=== PATIENT | female | born 1935 | race Caucasian/White ===

== ENCOUNTER 2016-08-11 15:28 | Outpatient (CLI) | payer MEDICARE, OTHER ==
--- NOTE | 2016-08-12 09:19 | XRAY Report ---
TWO-VIEW CHEST: 08/11/2016 CLINICAL INDICATION: Cough. COMPARISON: CT 02/16/2015. FINDINGS: Frontal and lateral views of the chest demonstrate a normal cardiac silhouette. Pleural c alcifications are stable. No new consolidation, effusion, or pneumothorax is present. IMPRESSION: NO EVIDENCE OF ACUTE CARDIOPULMONARY DISEASE. JOB #: [id number] EXT JOB #:[id number]
== END 2016-08-11 15:29 | disposition home or self-care (01) ==
LOC: DI.S 15:28
PROVIDERS: ATTEND Physician Assistant
DX: J20.9 Acute bronchitis, unspecified (principal)
CPT/HCPCS: 71020

== ENCOUNTER 2017-02-20 10:28 | Emergency (ER) | payer MEDICARE, OTHER ==
--- NOTE | 2017-02-20 11:25 | XRAY Preliminary Report ---
Exam: XR CHEST 2 VIEW PA/LAT IMPRESSION: Patchy mid lung opacities bilaterally, most likely atelectasis or pneumonia. Follow-up re commended in 2-3 weeks to confirm clearing. Otherwise, no acute abnormality. [facility] SITE ID: [id number]
--- NOTE | 2017-02-20 11:27 | XRAY Report ---
EXAM: CHEST RADIOGRAPHY 2 VIEWS EXAM DATE: 02/20/2017. CLINICAL HISTORY: Productive cough. COMPARISON: 02/16/2015. TECHNIQUE: PA and lateral views. FINDINGS: Lungs/Pleura: Normal vasculature. Small patchy opacities in the mid lung bilaterally. No pleural flui d or pneumothorax. Mediastinum: Normal cardiac and mediastinal contours. Bones: Degenerative changes of the spine. Left shoulder prosthesis. IMPRESSION: Patchy mid lung opacities bilaterally, most likely atelectasis or pneumonia. Follow-up re commended in 2-3 weeks to confirm clearing. Otherwise, no acute abnormality. [facility] Referring Provider Line: [phone] SITE ID: [id number]
--- NOTE | 2017-02-20 12:36 | ED Physician Documentation ---
PD HPI URI - Stated complaint Stated Complaint: COUGH - Chief complaint Chief Complaint: Resp - History obtained from History obtained from: Patient - History of Present Illness Timing - onset: How many weeks ago (1) Timing duration: Weeks (1) Timing details: Gradual onset, Still present (worse cough the past day) Associated symptoms: Nasal congestion, Sinus pain, Sore throat, Productive cough. No: Fever Contributing factors: No: Sick contact, Travel Similar symptoms before: Diagnosis (pneumonia) Recently seen: Not recently seen Review of Systems Constitutional: denies: Fever, Chills Nose: reports: Rhinorrhea / runny nose, Congestion Respiratory: reports: Cough Skin: denies: Rash, Lesions PD PAST MEDICAL HISTORY - Past Medical History Past Medical History: Yes Cardiovascular: None Respiratory: None Neuro: Headache/migraine Endocrine/Autoimmune: None GI: None : None HEENT: None Psych: None Musculoskeletal: Osteoarthritis Derm: None - Past Surgical History Past Surgical History: Yes /[employer]: Hysterectomy, Oophrectomy - Present Medications Home Medications: Ambulatory Orders Medication Instructions Recorded Confirmed Aspirin Chewable [St Reza 81 mg PO DAILY 11/12/14 02/20/17 Aspirin] Levothyroxine [Synthroid] 75 mcg PO QDAC 11/12/14 02/20/17 Triamterene/Hydrochlorothiazid 1 each PO DAILY 11/12/14 02/20/17 [Triamterene-Hctz 37.5-25 mg Cp] FLUoxetine [PROzac] 30 mg PO DAILY 02/16/15 02/20/17 Omeprazole 20 mg PO QDAC 02/17/15 02/20/17 Pravastatin Sodium 40 mg PO QPM 02/17/15 02/20/17 Albuterol Sulf [Ventolin Hfa 1 - 2 puffs INH Q4HR PRN #1 inhaler 02/20/17 Inhaler] Benzonatate [Tessalon] 100 mg PO TID PRN #25 capsule 02/20/17 Dexamethasone [Decadron] 4 mg PO DAILY #5 tablet 02/20/17 Doxycycline Monohydrate 100 mg PO BID #14 tablet 02/20/17 - Allergies Allergies/Adverse Reactions: Allergies Allergy/AdvReac Type Severity Reaction Status Date / Time No Known Drug Allergies Allergy Verified 11/12/14 14:52 - Social History Does the pt smoke?: No Smoking Status: Never smoker Does the pt drink ETOH?: Yes Does the pt have substance abuse?: No - Immunizations Immunizations are current?: No Immunizations: TDAP >10years/unknown - POLST Patient has POLST: No PD ED PE NORMAL - Vitals Vital signs reviewed: Yes - General General: Alert and oriented X 3, No acute distress, Well developed/nourished - HEENT HEENT: Ears normal, Moist mucous membranes, Pharynx benign - Neck Neck: Supple, no meningeal sign, No adenopathy - Cardiac Cardiac: RRR, No murmur - Respiratory Respiratory: Clear bilaterally - Abdomen Abdomen: Soft, Non tender - Back Back: No CVA TTP - Derm Derm: Normal color, Warm and dry - Extremities Extremities: No tenderness to palpate, Normal ROM s pain Results - Vitals Vitals: Oxygen O2 Source Room air - Rads (name of study) chest Radiology: Prelim report reviewed (right middle field with mild infiltrate. ) PD MEDICAL DECISION MAKING - ED course Complexity details: considered differential (she looks good, with minimal infiltrates on xray. Sats and vitals are good. ), d/w patient Departure - Departure Disposition: 01 Home, Self Care Clinical Impression: Upper respiratory infection Qualifiers: URI type: unspecified URI Qualified Code(s): J06.9 - Acute upper respiratory infection, unspecified Pneumonia Qualifiers: Pneumonia type: due to unspecified organism Laterality: right Lung location: middle lobe of lung Qualified Code(s): J18.1 - Lobar pneumonia, unspecified organism Condition: Stable Record reviewed to determine appropriate education?: Yes Instructions: ED Pneumonia Adult Prescriptions: Albuterol Sulf [Ventolin Hfa Inhaler] 1 - 2 puffs INH Q4HR PRN #1 inhaler PRN Reason: Shortness Of Air/Wheezing Benzonatate [Tessalon] 100 mg PO TID PRN #25 capsule PRN Reason: Cough Dexamethasone [Decadron] 4 mg PO DAILY #5 tablet Doxycycline Monohydrate 100 mg PO BID #14 tablet Comments: There is a very small patch of haziness on your x-ray that could suggest early pneumonia. Otherwise it sounds like a general respiratory infection. This commonly can be viral but sometimes bacterial. We will treated with antibiotics but also a combination of inhaler, cough medicine, steroid to help decrease symptoms generally. Drink lots of fluids. Tylenol if needed for fevers. Recheck if not improving over the next few days. Discharge Date/Time: 02/20/17 12:40
[2017-02-20 12:46] VITALS: BP 126/68
== END 2017-02-20 12:40 | disposition home or self-care (01) ==
LOC: ED 10:28
DX: J06.9 Acute upper respiratory infection, unspecified (principal); Z79.82 Long term (current) use of aspirin
CPT/HCPCS: 71020; 99283

== ENCOUNTER 2017-09-12 15:36 | Outpatient (CLI) | payer MEDICARE, OTHER ==
--- NOTE | 2017-09-13 08:14 | XRAY Report ---
Procedure Date: 09/12/2017 Accession Number: [id number] / [id number] Procedure: XRS - Foot 3 View BILAT CPT Code: FULL RESULT: EXAM: Foot 3 View BILAT DATE: 09/12/2017 4:11 PM CLINICAL HISTORY: FOOT,LEG,HIP PAIN COMPARISON: None. TECHNIQUE: 3 views each foot. FINDINGS: RIGHT: Bones: Evidence of old trauma, fourth ray proximal phalanges. No acute fracture, dislocation or aggressive osseous lesion. Joints: Normal. No subluxations. Soft Tissues: Normal. No soft tissue swelling. LEFT: Bones: Normal. No fractures or bone lesions. Joints: Normal. No subluxations. Soft Tissues: Normal. No soft tissue swelling. IMPRESSION: No acute fracture, dislocation or aggressive bone lesion. [facility]
--- NOTE | 2017-09-13 08:15 | XRAY Report ---
Procedure Date: 09/12/2017 Accession Number: [id number] / [id number] Procedure: XRS - Hip w/Pelvis 2-3V RT CPT Code: FULL RESULT: EXAM: Hip w/Pelvis 2-3V RT DATE: 09/12/2017 4:11 PM CLINICAL HISTORY: FOOT,LEG,HIP PAIN COMPARISON: None. TECHNIQUE: 1 view of the pelvis and 1 view of the hip. FINDINGS: Bones: Normal. No fracture or bone lesion. Joints: Femoroacetabular joint space narrowing right greater than left in keeping with osteoarthrosis. The pubis symphysis, and sacroiliac joints are preserved. Soft Tissues: Normal. No soft tissue swelling. IMPRESSION: Hip joint osteoarthrosis right greater than left, otherwise unremarkable pelvis and hip radiography. [facility]
--- NOTE | 2017-09-13 08:18 | XRAY Report ---
Procedure Date: 09/12/2017 Accession Number: [id number] / [id number] Procedure: XRS - Knee 3 View BILAT CPT Code: FULL RESULT: EXAM: Knee 3 View BILAT DATE: 09/12/2017 4:11 PM CLINICAL HISTORY: FOOT,LEG,HIP PAIN COMPARISON: None. TECHNIQUE: 3 views each. FINDINGS: RIGHT KNEE: Bones: Normal. No fractures or bone lesions. Joints: Chondrocalcinosis. No effusion. No subluxations. Soft Tissues: Normal. No soft tissue swelling. LEFT KNEE: Bones: Normal. No fractures or bone lesions. Joints: Chondrocalcinosis. No effusion. No subluxations. Soft Tissues: Normal. No soft tissue swelling. IMPRESSION: Unremarkable bilateral knee radiographs. [facility]
== END 2017-09-12 15:37 | disposition home or self-care (01) ==
LOC: DI.S 15:36
PROVIDERS: ATTEND Registered Nurse
DX: M16.0 Bilateral primary osteoarthritis of hip (principal); M79.606 Pain in leg, unspecified; M79.671 Pain in right foot

== ENCOUNTER 2019-01-31 14:47 | Outpatient (CLI) | payer MEDICARE, OTHER ==
--- NOTE | 2019-02-01 15:43 | XRAY Report ---
Reason: COUGH Procedure Date: 01/31/2019 Accession Number: [id number] / [id number] Procedure: XRS - Chest 2 View X-Ray CPT Code: 86855 Final Report FULL RESULT: EXAM: CHEST RADIOGRAPHY EXAM DATE: 01/31/2019 03:00 PM. CLINICAL HISTORY: COUGH. COMPARISON: CHEST 2 VIEW PA/LAT 02/20/2017 10:50 AM. TECHNIQUE: 2 views. FINDINGS: Lungs/Pleura: No focal opacities evident. No pleural effusion. No pneumothorax. Normal volumes. Pleural calcifications on the right redemonstrated. Mediastinum: Heart and mediastinal contours are unremarkable. Other: None. IMPRESSION: No focal consolidation. [facility]
== END 2019-01-31 14:48 | disposition home or self-care (01) ==
LOC: DI.S 14:47
PROVIDERS: ATTEND Nurse Practitioner Family
DX: R05 Cough (principal)
CPT/HCPCS: 71046

== ENCOUNTER 2019-03-20 14:41 | Outpatient (CLI) | payer MEDICARE, OTHER ==
--- NOTE | 2019-03-21 14:53 | DEXA Report ---
Reason: POSTMENOPAUSAL Procedure Date: 03/20/2019 Accession Number: [id number] / [id number] Procedure: DEX - Dexa Spine and/or Hip CPT Code: Final Report FULL RESULT: EXAM: Dexa Spine and/or Hip DATE: 03/20/2019 3:08 PM CLINICAL HISTORY: POSTMENOPAUSAL. TECHNIQUE: Dual energy x-ray absorptiometry (DXA) was performed on a [employer]reme[employer] System. Regions measured are the AP Spine, femoral neck, and if needed forearm. COMPARISON: None. In accordance with the International Society for Clinical Densitometry (ISCD) guidelines, data from previous exams may be reanalyzed using current recommendations and techniques. This is done to allow a more accurate basis for comparison with the current study. FINDINGS: The data for the lumbar spine is as follows: BMD (g/cm/cm) T-SCORE Z-SCORE REGION L1 1.081 -0.4 1.2 L2 1.166 -0.3 1.3 L3 1.374 1.4 3.0 L4 1.376 1.5 3.0 TOTAL 1.262 0.7 2.2 NOTE: All evaluable vertebrae are used for classification The data for the hip is as follows: BMD (g/cm/cm) T-SCORE Z-SCORE REGION Neck 0.805 -1.7 0.4 TOTAL 0.918 -0.7 1.2 NOTE: The femoral neck or total proximal femur, whichever is lowest, is used for classification. IMPRESSION: THE WHO CLASSIFICATION BASED ON THE INTERNATIONAL REFERENCE STANDARD IS OSTEOPENIA.THE FRACTURE RISK IS INCREASED. RECOMMENDATION: Patients with diagnosis of osteoporosis or osteopenia should have regular bone mineral density assessment. For those eligible for Medicare, routine testing is allowed once every 2 years. Testing frequency can be increased for patients who have rapidly progressing disease or for those who are receiving medical therapy to restore bone mass. COMMENT: World Health Organization (WHO) definitions for osteoporosis and osteopenia: NORMAL BMD: T-score at -1.0 or higher, fracture risk is low OSTEOPENIA BMD: T-score between -1.0 and -2.5, fracture risk is increased. OSTEOPOROSIS BMD: T-score at -2.5 or lower, fracture risk is high. National Osteoporosis Foundation recommends: 1. Obtain adequate dietary calcium (at least 1200 mg per day) and vitamin D (400-800 international units per day). 2. Participate, as appropriate, in regular weightbearing and muscle-strengthening exercise. 3. Avoid tobacco use and reduce alcohol and caffeine intake. 4. For more detailed information see the website at www.NOF.org.
== END 2019-03-20 14:42 | disposition home or self-care (01) ==
LOC: DI 14:41
PROVIDERS: ATTEND Registered Nurse
DX: M85.88 Other specified disorders of bone density and structure, other site (principal)
CPT/HCPCS: 77080

== ENCOUNTER 2019-08-06 11:31 | Outpatient (CLI) | payer MEDICARE, OTHER ==
--- NOTE | 2019-08-06 12:12 | XRAY Report ---
Reason: PAIN IN RIGHT HIP, RT KNEE Procedure Date: 08/06/2019 Accession Number: [id number] / [id number] Procedure: XR - Knee 3 View RT CPT Code: Final Report FULL RESULT: PROCEDURE: Knee 3 View RT INDICATIONS: PAIN IN RIGHT HIP, RT KNEE TECHNIQUE: 3 views of the right knee(s) were acquired. COMPARISON: None. FINDINGS: Bones: Mild tricompartmental osteoarthritis is seen. No fractures or dislocations. No suspicious bony lesions. Soft tissues: No joint effusion. Mild chondrocalcinosis in medial and lateral femoral tibial compartments are also seen. IMPRESSION: Mild tricompartmental osteoarthritis and chondrocalcinosis. No fracture or dislocation. No significant joint effusion. Reviewed by: Mike Moeller MD on 08/06/2019 12:11 PM PDT Approved by: Mike Moeller MD on 08/06/2019 12:11 PM PDT Station ID: [id number]
--- NOTE | 2019-08-06 12:13 | XRAY Report ---
Reason: PAIN IN RIGHT HIP, RT KNEE Procedure Date: 08/06/2019 Accession Number: [id number] / [id number] Procedure: XR - Hip w/Pelvis 2-3V RT CPT Code: Final Report FULL RESULT: PROCEDURE: Hip w/Pelvis 2-3V RT INDICATIONS: PAIN IN RIGHT HIP, RT KNEE TECHNIQUE: AP pelvis with lateral view(s) of the right hip(s). COMPARISON: None. FINDINGS: Bones: No fractures or dislocations. Moderate right hip joint osteoarthritic changes are seen with joint space narrowing, subchondral sclerosis and small marginal osteophyte formation. Mild left hip joint osteoarthritic changes also noted. No evidence of avascular necrosis. Pelvic ring appears intact. No suspicious bony lesions. Soft tissues: The visualized bowel gas pattern is normal. No suspicious soft tissue calcifications. IMPRESSION: Asymmetric moderate right hip joint osteoarthritis. Mild left hip joint osteoarthritis. No evidence of avascular necrosis. Reviewed by: Mike Moeller MD on 08/06/2019 12:12 PM PDT Approved by: Mike Moeller MD on 08/06/2019 12:12 PM PDT Station ID: [id number]
== END 2019-08-06 11:32 | disposition home or self-care (01) ==
LOC: DI 11:31
PROVIDERS: ATTEND Registered Nurse
DX: M17.5 Other unilateral secondary osteoarthritis of knee (principal); M11.261 Other chondrocalcinosis, right knee; M16.6 Other bilateral secondary osteoarthritis of hip

== ENCOUNTER 2020-01-14 13:37 | Outpatient (CLI) | payer MEDICARE, OTHER ==
--- NOTE | 2020-01-23 14:10 | Mammography Report ---
BILATERAL DIGITAL SCREENING MAMMOGRAM 3D/2D: 01/14/2020 CLINICAL: Routine screening. Routine screening. Comparison is made to exams dated: 05/17/2018 mammogram, 04/20/2017 mammogram, and 05/05/2015 mammogram - [facility]. The tissue of both breasts is predominantly fatty. No significant masses, calcifications, or other findings are seen in either breast. There has been no significant interval change. IMPRESSION: NEGATIVE There is no mammographic evidence of malignancy. A 1 year screening mammogram is recommended. This exam was interpreted at Station ID: [id number]. NOTE: For mammograms, a report in lay terms will be sent to the patient. Approximately 15% of breast malignancies will not be visualized mammographically. In the management of a palpable breast mass, a negative mammogram must not discourage biopsy of a clinically suspicious lesion. Electronically Signed By: Carlos Quintana M.D., jr/giuliana:01/23/2020 10:56:09 ACR BI-RADS Category 1: Negative 3341F PARENCHYMAL PATTERN: (F) - The breast(s) demonstrate(s) diffuse fatty replacement. BI-RADS CATEGORY: (1) - 1 RECOMMENDATION: (ANNUAL) - Recommend routine annual screening mammography. [id number] 1 year screening LATERALITY: (B)
== END 2020-01-14 13:38 | disposition home or self-care (01) ==
LOC: DI 13:37
PROVIDERS: ATTEND Registered Nurse
DX: Z12.31 Encounter for screening mammogram for malignant neoplasm of breast (principal)
CPT/HCPCS: 77063; 77067

== ENCOUNTER 2020-03-17 13:30 | Outpatient (CLI) | payer MEDICARE, OTHER ==
--- NOTE | 2020-03-17 14:30 | CT Report ---
PROCEDURE: HEAD WO INDICATIONS: HEADACHE, FALL TECHNIQUE: Noncontrast 4.5 mm thick angled axial sections acquired from the foramen magnum to the vertex. For r adiation dose reduction, the following was used: automated exposure control, adjustment of mA and/or kV according to patient size. COMPARISON: 07/14/2012 FINDINGS: Image quality: Excellent. CSF spaces: Basal cisterns are patent. No extra-axial fluid collections. The ventricles are symmet gisele in size and shape. Brain: No intracranial bleeds or masses. There is cerebral volume loss for age, with resultant vent ricular and sulcal prominence. There are periventricular and deep white matter chronic small vessel ischemic changes. There is intracranial internal carotid artery atherosclerosis. Skull and face: Calvarium and visualized facial bones appear intact, without suspicious lesions. Sinuses: Visualized sinuses and mastoids are clear. IMPRESSION: No acute intracranial disease process. Reviewed by: Bettina Law MD, PhD on 03/17/2020 1:28 PM [facility] Approved by: Bettina Law MD, PhD on 03/17/2020 1:28 PM [facility] Station ID: [id number]
== END 2020-03-17 13:31 | disposition home or self-care (01) ==
LOC: DI 13:30
PROVIDERS: ATTEND Registered Nurse
DX: R51.9 Headache, unspecified (principal)
CPT/HCPCS: 70450

== ENCOUNTER 2020-03-21 13:07 | Outpatient (CLI) | payer MEDICARE, OTHER ==
[~2020-03-21 13:07] MED LIST: BUFFERED LIDOCAINE 10 ML SYRINGE ONE; ROPIVACAINE 0.5% PF 20 ML AMPULE ONE; TRIAMCINOLONE 40 MG/ML VIAL ONE
[2020-03-21] MEDS ORDERED: ROPIVACAINE 0.5% PF 20 ML AMPULE EP ONE (14:50)
[2020-03-21] MEDS ORDERED: iohexoL-240 10 ML VIAL IVP ONE (14:52)
[2020-03-21] MEDS ORDERED: TRIAMCINOLONE 40 MG/ML VIAL IM ONE (14:56)
[2020-03-21] MEDS ORDERED: BUFFERED LIDOCAINE 10 ML SYRINGE IU ONE (14:56)
--- NOTE | 2020-03-21 15:05 | XRAY Report ---
PROCEDURE: Inj/Aspiration Major Joint INDICATIONS: OSTEOARTHRITIS OF RT HIP JOINT CONTRAST: CONTRAST: Omipaque FLUORO TIME: FLUORO TIME: 0.13 and NUMBER IMAGES: 2 TECHNIQUE: The indications, alternatives, benefits, risks, and complications of the procedure were explained to the patient. Written informed consent was obtained and placed in the chart. The patient was placed in an appropriate position on the fluoroscopy table, and a site was chosen for percutaneous access un maricel fluoroscopic guidance. Local anesthetic was administered using a 1% lidocaine solution. A hypod ermic or spinal needle was then used to access the symptomatic joint. Intra-articular location of th e needle tip was confirmed by injecting a small amount of contrast, followed by steroid administratio n. The needle was then withdrawn, and a bandage applied to the puncture site. FINDINGS: Joint injected: Right hip Medications injected: 4 mL of 40 mg/mL Kenalog and 0.5% Ropivacaine mixture. Complications: None. Preinjection pain level: 5 out of 10 Postinjection pain level 2 out of 10 IMPRESSION: Successful fluoroscopically guided administration of steroid and anaesthetic solution into the right hip joint. Reviewed by: Thais Cannon MD on 03/21/2020 3:04 PM PST Approved by: Thais Cannon MD on 03/21/2020 3:04 PM PST Station ID: [id number]
== END 2020-03-21 13:08 | disposition home or self-care (01) ==
LOC: DI 13:07
PROVIDERS: ATTEND Registered Nurse
DX: M16.11 Unilateral primary osteoarthritis, right hip (principal)
CPT/HCPCS: 20610; Q9966

== ENCOUNTER 2020-08-19 11:05 | Outpatient (CLI) | payer MEDICARE, OTHER | END 2020-08-19 11:06 | disposition home or self-care (01) | LOC: LAB 11:05 | PROVIDERS: ATTEND Internal Medicine Gastroenterology | DX: R12 Heartburn (principal); K21.9 Gastro-esophageal reflux disease without esophagitis; Z20.822 Contact with and (suspected) exposure to COVID-19 ==

== ENCOUNTER 2020-11-06 07:20 | Day surgery (SDC) | payer MEDICARE, OTHER ==
[~2020-11-06 07:20] MED LIST changes: -BUFFERED LIDOCAINE 10 ML SYRINGE ONE; +CYCLOPENTOLATE 1% OPHTH DROPS 2 ML ONE; +KETOROLAC 0.45% OPHTH DROPS ONE; +PHENYLEPHRINE 2.5% OPHTH 2 ML DROPS ONE; +PROPARACAINE 0.5% OPHTH DROPS 15 ML ONE; -ROPIVACAINE 0.5% PF 20 ML AMPULE ONE; -TRIAMCINOLONE 40 MG/ML VIAL ONE
[2020-11-06] MEDS ORDERED: LACTATED RINGERS 1,000 ML IV ONE ×2 (07:38→09:16)
--- NOTE | 2020-11-06 07:55 | ANESTHESIA ---
Pre-Anesthesia VS, & Labs - Diagnosis L senile combined cataract - Procedure L extraction cataract w/IOL Vital Signs: Temp Pulse Resp BP Pulse Ox 36.1 C L 75 16 138/71 H 98 11/06/20 07:48 11/06/20 07:48 11/06/20 07:48 11/06/20 07:48 11/06/20 07:48 Height: 5 ft 2 in Weight (kg): 75 kg Body Mass Index: 30.2 BMI Classification: Obese - NPO >8 hours - Is Patient ?: No - Lab Results Lab results reviewed: Yes Home Medications and Allergies Aspirin Chewable [St Reaz Aspirin] 81 mg PO DAILY 11/12/14 Levothyroxine [Synthroid] 75 mcg PO QDAC 11/12/14 Triamterene/Hydrochlorothiazid [Triamterene-Hctz 37.5-25 mg Cp] 1 each PO DAILY 11/12/14 FLUoxetine [PROzac] 30 mg PO DAILY 02/16/15 Omeprazole 20 mg PO QDAC 02/17/15 Pravastatin Sodium 40 mg PO QPM 02/17/15 Allergies/Adverse Reactions: Allergies Allergy/AdvReac Type Severity Reaction Status Date / Time No Known Drug Allergies Allergy Verified 11/12/14 14:52 Anes History & Medical History - Anesthetic History Anesthesia Complications: reports: No previous complications Family history of Anesthesia Complications: Denies Family history of Malignant Hyperthermia: Denies - Medical History Cardiovascular: reports: None Pulmonary: reports: None Gastrointestinal: reports: None Urinary: reports: None Musculoskeletal: reports: Osteoarthritis Endocrine/Autoimmune: reports: None Blood Disorders: reports: None Skin: reports: None Smoking Status: Never smoker - Surgical History Gynecologic: reports: Hysterectomy, Oophrectomy Exam General: Alert, Oriented x3, Cooperative Mouth Openin Fingerbreadth Neck Mobility: Normal Mallampati classification: II Thyromental Distance: 4-6 cm Respiratory: Lungs clear, Normal breath sounds, No respiratory distress Cardiovascular: Regular rate Neurological: Normal speech Mental/Cognitive Status: Alert/Oriented X3, Normal for patient Cognitive Status: Within normal limits Plan Anesthesia Type: MAC Consent for Procedure(s) Verified and Reviewed: Yes Code Status: Attempt Resuscitation ASA classification: 2-Mild systemic disease Is this case an emergency?: No
[2020-11-06] MEDS ORDERED: MIDAZOLAM 2 MG/2 ML VIAL ONE (08:33)
[2020-11-06] MEDS ORDERED: TIMOLOL 0.5% OPHTH DROPS OPTH ONE (08:47)
[2020-11-06] MEDS ORDERED: EPINEPHrine 1 MG/ML AMP IR ONE (08:47)
[2020-11-06] MEDS ORDERED: CHONDR SULF/HYALURONATE SYRINGE IO ONE (08:47)
[2020-11-06] MEDS ORDERED: BRIMONIDINE 0.2% OPHTH DROPS 5 ML OPTH ONE (08:47)
[2020-11-06] MEDS ORDERED: BSS/LIDOCAINE/EPINEPHRINE 1 ML SYRINGE IO ONE (08:48)
[2020-11-06] MEDS ORDERED: TRIAMCIN/MOXIFLOX OPHTHALMIC 0.6 ML VIAL IO ONE ×2 (08:48→09:22)
[2020-11-06] MEDS ORDERED: PROPARACAINE 0.5% OPHTH DROPS 15 ML EACHEYE ONE (08:49)
[2020-11-06] MEDS ORDERED: VANCOMYCIN OPHTHALMI 8MG/0.8ML 8 MG/0.8 ML SYRINGE IO ONE ×2 (08:49→09:23)
--- NOTE | 2020-11-06 09:11 | ANESTHESIA POST OP EVALUATION ---
Anesthesia Post Eval - Post Anesthesia Eval Vitals: Last Vital Signs Temp 36.1 C L 11/06/20 07:48 Pulse 75 11/06/20 07:48 Resp 16 11/06/20 07:48 BP 138/71 H 11/06/20 07:48 Pulse Ox 98 11/06/20 07:48 CV Function Including HR & BP: Stable Pain Control: Satisfactory Nausea & Vomiting: Negative Mental Status: Baseline Respiratory Status: Airway Patent Hydration Status: Satisfactory Anesthesia Complications: None
--- NOTE | 2020-11-06 09:23 | OPERATIVE REPORT ---
Operative Report - Other Other Information/Narrative: Date of Surgery: Preop Dx: Complex, visually significant cataract left eye. Complex due to small pupil requiring mechanical dilation using a Malyugin ring. This was the first cataract surgery. Postop Dx: Same Procedure: Phacoemulsification with posterior chamber intraocular lens implant left eye Surgeon: Dr. 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 Best corrected visual acuity was 20/50 with glare to 20/200 vision in the left eye. Indications for surgery were: - Difficulty seeing words, closed captions, or game scores on TV - Difficulty driving in low light or at night - Difficulty driving at night because of headlights from other vehicles - Difficulty with glare or bright lights in any situation The patient was consented at length concerning the risks and benefits of catarac t surgery after which the patient expressed a desire to proceed with surgery. Operative Procedure: The patient was taken into OR#3 and placed under monitored anesthesia care. A surgical time-out was conducted confirming correct patient, correct procedure, and correct surgical site. The patient was given topical anesthesia and then prepped and draped in the usual sterile fashion. The eye was entered at the 6 and 3 oclock positions. Intracameral Shugarcaine was injected into the anterior chamber followed by a dispersive viscoelastic. A Malyugin ring was injected into the anterior chamber and engaged with the pupillary margin at four points to expand the pupil. A continuous-tear curvilinear capsulorhexis was performed. The nucleus was hydrodissected and pha coemulsified. The cortex was evacuated using automated infusion and aspiration. A cohesive viscoelastic was injected into the capsular bag and a 20.5 diopter intraocular lens was inserted into the bag. The Malyugin ring was disengaged from the pupillary margin and removed from the anterior chamber. Infusion and aspiration were used to evacuate the viscoelastic materials from the eye. The wounds were hydrated and the eye inflated to physiologic pressure using balanced salt solution. Approximately 0.25ml of a mixture of triamcinolone and moxifloxacin was injected trans-sclerally into the vitreous in the inferotemporal quadrant using a 30 gauge cannula. An additional 0.55ml of a mixture of triamcinolone, moxifloxacin, and vancomycin was injected subconjunctivally in the superior quadrant for infection and inflammation prophylaxis. Wound integrity was checked with Weck-Argelia sponges. The patient was taken from the operating room in good condition and given post-op instructions.
[2020-11-06 09:37] VITALS: BP 130/60
== END 2020-11-06 07:21 | disposition home or self-care (01) ==
LOC: SDS 07:20
PROVIDERS: ATTEND Ophthalmology
DX: H25.812 Combined forms of age-related cataract, left eye (principal); Z87.891 Personal history of nicotine dependence; E66.9 Obesity, unspecified; Z68.30 Body mass index [BMI] 30.0-30.9, adult
CPT/HCPCS: 66984; A9270; J3490; J7120

== ENCOUNTER 2021-10-28 17:55 | Outpatient (CLI) | payer MEDICARE, OTHER | END 2021-10-28 17:56 | disposition critical access hospital (66) | LOC: EMS 17:55 | DX: T63.441A Toxic effect of venom of bees, accidental (unintentional), initial encounter (principal); L50.9 Urticaria, unspecified; R09.89 Other specified symptoms and signs involving the circulatory and respiratory systems | CPT/HCPCS: A0425; A0427 ==

== ENCOUNTER 2021-10-28 18:23 | Emergency (ER) | payer MEDICARE, OTHER ==
[2021-10-28] MEDS ORDERED: predniSONE 20 MG TABLET PO STA (18:28)
[2021-10-28] MEDS ORDERED: FAMOTIDINE 20 MG TABLET PO STA (18:30)
--- NOTE | 2021-10-28 18:31 | ED Physician Documentation ---
History of Present Illness - Stated complaint Stated Complaint: ALLERGIC REACTION - Additonal information Additional information: 86-year-old female presents the emergency department for evaluation of anaphylaxis to a bee sting. At just after 5 PM she was stung on the right hand by a bee. She began to develop generalized urticaria had some difficulty breathing and shortness of air and summoned 911. On presentation for EMS they noted a soft systolic blood pressure of 100. She was Arousable though lethargic. They administered 0.3 mg of epinephrine at 1755 as well as 50 mg of Benadryl IM. This improved much of the urticaria. She began to report some tongue difficulty at about 9:54 PM and was then again administered 0.3 mg of epinephrine. Since then the hives have started to resolve though she still have them on her abdomen. She is lethargic but arousable. She knows where she is at and why she is here. She is denying chest pain or shortness of air. No focal deficits Review of Systems Constitutional: reports: Reviewed and negative Throat: reports: Other Respiratory: reports: Dyspnea GI: reports: Reviewed and negative : reports: Reviewed and negative Skin: reports: Bite / sting, Other (Generalized urticaria) Musculoskeletal: reports: Reviewed and negative Neurologic: reports: Reviewed and negative PD PAST MEDICAL HISTORY - Past Medical History Cardiovascular: None Respiratory: None Endocrine/Autoimmune: None GI: None : None HEENT: None Psych: None Musculoskeletal: Osteoarthritis Derm: None - Past Surgical History Past Surgical History: Yes Ortho: Shoulder arthroplasty /BE[employer]ER: Hysterectomy, Oophrectomy HEENT: Other - Present Medications Home Medications: Ambulatory Orders Medication Instructions Recorded Confirmed Levothyroxine [Synthroid] 75 mcg PO QDAC 11/12/14 11/06/20 Triamterene/Hydrochlorothiazid 1 each PO DAILY 11/12/14 11/06/20 [Triamterene-Hctz 37.5-25 mg Cp] FLUoxetine [PROzac] 30 mg PO DAILY 02/16/15 11/06/20 Omeprazole 20 mg PO QDAC 02/17/15 02/20/17 Pravastatin Sodium 40 mg PO QPM 02/17/15 11/06/20 Albuterol Sulf [Ventolin Hfa 1 - 2 puffs INH Q4HR PRN #1 inhaler 02/20/17 Inhaler] EPINEPHrine [Epinephrine] 0.3 mg IJ ONCE PRN #1 10/28/21 predniSONE [Deltasone] 40 mg PO DAILY 4 Days #8 tablet 10/28/21 - Allergies Allergies/Adverse Reactions: Allergies Allergy/AdvReac Type Severity Reaction Status Date / Time No Known Drug Allergies Allergy Verified 11/12/14 14:52 - Social History Does the pt smoke?: No Smoking Status: Never smoker Does the pt drink ETOH?: Yes Does the pt have substance abuse?: No - Immunizations Immunizations are current?: No Immunizations: TDAP >10years/unknown - POLST Patient has POLST: No PD ED PE NORMAL - General General: Alert and oriented X 3, No acute distress, Well developed/nourished - HEENT HEENT: Atraumatic, Ears normal, Pharynx benign, Other (No tongue or lip swelling. No swelling of the neck. Normal phonation. Mallampati of 2). No: Moist mucous membranes (Dry mouth mucous membranes) - Neck Neck: Supple, no meningeal sign, No adenopathy - Cardiac Cardiac: RRR, No murmur - Respiratory Respiratory: No respiratory distress, Clear bilaterally - Abdomen Abdomen: Normal bowel sounds - Derm Derm: Normal color, Warm and dry, Other (Generalized urticaria on the abdomen and legs. sting noted to the right forearm with generalized swelling and erythema surrounding it) - Extremities Extremities: No deformity - Neuro Neuro: Alert and oriented X 3, director of culture 2-12 intact Eye Opening: Spontaneous Motor: Obeys Commands Verbal: Oriented GCS Score: 15 Results - Vitals Vitals: Vital Signs - 24 hr 10/28/21 10/28/21 10/28/21 18:33 18:41 19:11 Temperature 36.4 C L Heart Rate 90 90 94 Respiratory 18 18 18 Rate Blood Pressure 138/58 H 142/64 H 134/62 H O2 Saturation 96 94 96 10/28/21 10/28/21 10/28/21 20:00 20:16 21:00 Temperature Heart Rate 58 L 81 78 Respiratory 15 15 10 L Rate Blood Pressure 128/58 L 127/58 L 120/60 O2 Saturation 94 96 92 10/28/21 10/28/21 21:27 21:31 Temperature Heart Rate 80 Respiratory 12 Rate Blood Pressure 93/61 118/59 L O2 Saturation 99 Oxygen O2 Source Room air - Labs Labs: Laboratory Tests 10/28/21 18:44 Sodium 136 Potassium 2.8 L Chloride 100 L Carbon Dioxide 23 Anion Gap 13.0 BUN 20 Creatinine 0.8 Estimated GFR (MDRD) 68 L Glucose 130 H Calcium 8.9 PD MEDICAL DECISION MAKING - ED course Complexity details: reviewed results, re-evaluated patient, d/w patient ED course: 86-year-old female presents emergency department for evaluation of a mild anaphylactic reaction to a bee sting. She was stung about 1 month ago and then stung again today. Shortly after being stung she had developed generalized urticaria and had some shortness of air. For EMS she was noted to have some mildly low blood pressure with a systolic of 100 as well as early facial swelling. She was administered epinephrine twice. On presentation to the emergency department she had some generalized urticaria that has resolved over that her observation period here. She was administered some prednisone and will be discharged with 4 days of prednisone. She did receive Benadryl via EMS. I did spend some time with the patient discussing the severity of hymenoptera envenomation and anaphylaxis. A prescription for an EpiPen was sent home with the patient. Emergent return precautions were otherwise discussed. Patient is signed out to my nighttime colleague Dr. Patten. If she remains symptom-free at about 11 PM she is stable for discharge home Departure - Departure Clinical Impression: Bee sting-induced anaphylaxis Qualifiers: Encounter type: initial encounter Injury intent: accidental or unintentional Qualified Code(s): T63.441A - Toxic effect of venom of bees, accidental (unintentional), initial encounter Condition: Stable Record reviewed to determine appropriate education?: Yes Instructions: EpiPen Auto Injector Dc, Anaphylaxis Prescriptions: predniSONE [Deltasone] 40 mg PO DAILY 4 Days #8 tablet EPINEPHrine [Epinephrine] 0.3 mg IJ ONCE PRN #1 PRN Reason: Anaphylaxis Comments: Radha you are seen today in the emergency department after you sustained a bee sting injury to your right hand. You had a reaction to the bee sting called anaphylaxis. This is always life-threatening and you should take any future bee sting injuries seriously. You were administered 2 doses of epinephrine in order to help minimize the swelling and keep your airway open. Should you receive another bee sting in the future you should self administer the epinephrine. You should also always carry this injector with you whenever you travel and keep it on your body at all times. For at least a few days I expect that this right hand will be sore and uncomfortable. You can continue to ice the hand. Applying hydrocortisone ointment can help reduce pain and swelling. I am sending a prescription for an additional 4 days of steroids to the [facility] in [place]. This will help reduce the hand swelling and help with the hives that you had developed Please discuss this ED visit with your primary care doctor. If at any point you develop a return of difficulty breathing, have tongue or lip swelling, have any fainting episodes or chest pain then you should return immediately to the ER for second evaluation.
[2021-10-28 18:59] LABS: CALCIUM 8.9 mg/dL (8.5-10.3); CREATININE 0.8 mg/dL (0.4-1.0); POTASSIUM 2.8 mmol/L (3.5-5.0)
[2021-10-28] MEDS ORDERED: HYDROmorphone 1 MG/ML CARPUJECT IVP STA (19:22)
[2021-10-28 21:31] VITALS: BP 118/59
--- NOTE | 2021-11-16 20:22 | ED Physician Documentation ---
ED Addendum - Addendum Addendum: 11/16/21 20:21 Received sign out from DELMA Cabezas, please see her note for details of H+P. I reevaluated patient at approximately 23:00. Patient is awake, alert, NAD, and eager to be discharged home. She has normal and stable vital signs, with pulse 90s bpm , pulse ox 95-97% on room air, and normal BP. She is asymptomatic.
== END 2021-10-28 23:15 | disposition home or self-care (01) ==
LOC: EDUNIT# → ED 18:23
DX: T63.441A Toxic effect of venom of bees, accidental (unintentional), initial encounter (principal)
CPT/HCPCS: 36415; 80048; 96374; 99283; 99284; A9270; J1170; J7512

== ENCOUNTER 2022-07-01 04:46 | Outpatient (CLI) | payer MEDICARE, OTHER | END 2022-07-01 04:47 | disposition EMS.NT | LOC: EMS 04:46 | DX: F41.9 Anxiety disorder, unspecified (principal); Z63.4 Disappearance and death of family member ==

== ENCOUNTER 2022-10-29 16:42 | Emergency (ER) | payer MEDICARE, OTHER ==
[2022-10-29] MEDS ORDERED: lidocaine 1% 20 ML MDV SUBQ ONE (17:14)
[2022-10-29] MEDS ORDERED: TETANUS/DIPHTHERIA/PERTUSSIS 0.5 ML SYRINGE IM ONE (17:14)
[2022-10-29] MEDS ORDERED: BACITRACIN ZINC OINT 1 PACKET TOP STA (17:15)
--- NOTE | 2022-10-29 17:17 | ED Physician Documentation ---
History of Present Illness - Stated complaint Stated Complaint: HEAD INJ - Chief complaint Chief Complaint: Laceration - Additonal information Additional information: 87-year-old female presents emergency department for evaluation of a large laceration on her left forehead sustained when she was carrying groceries into the house and struck her head on the door jam. Denies blood thinners. Denies loss of consciousness. She does have a 4 cm vertical laceration above the left eyebrow extending into the hairline. No focal neurodeficits. 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 HEENT: Other - Present Medications Home Medications: Ambulatory Orders Medication Instructions Recorded Confirmed Levothyroxine [Synthroid] 75 mcg PO QDAC 11/12/14 10/29/22 Triamterene/Hydrochlorothiazid 1 each PO DAILY 11/12/14 10/29/22 [Triamterene-Hctz 37.5-25 mg Cp] FLUoxetine [PROzac] 30 mg PO DAILY 02/16/15 10/29/22 Omeprazole 20 mg PO QDAC 02/17/15 10/29/22 Pravastatin Sodium 40 mg PO QPM 02/17/15 11/06/20 Albuterol Sulf [Ventolin Hfa 1 - 2 puffs INH Q4HR PRN #1 inhaler 02/20/17 Inhaler] EPINEPHrine [Epinephrine] 0.3 mg IJ ONCE PRN #1 10/28/21 predniSONE [Deltasone] 40 mg PO DAILY 4 Days #8 tablet 10/28/21 - Allergies Allergies/Adverse Reactions: Allergies Allergy/AdvReac Type Severity Reaction Status Date / Time No Known Drug Allergies Allergy Verified 10/29/22 17:01 - Social History Does the pt smoke?: No Smoking Status: Never smoker Does the pt drink ETOH?: Yes Does the pt have substance abuse?: No - Immunizations Immunizations are current?: No Immunizations: TDAP >10years/unknown - POLST Patient has POLST: No PD ED PE NORMAL - General General: Alert and oriented X 3, No acute distress - HEENT HEENT: Other (Negative for raccoon eyes, darnell sign). No: Atraumatic (4 cm vertical laceration above the left eyebrow extending into the hairline.) - Neck Neck: Supple, no meningeal sign - Cardiac Cardiac: RRR - Respiratory Respiratory: No respiratory distress, Clear bilaterally - Derm Derm: Other (Vertical 4 cm laceration above left eyebrow extending into the hairline) - Extremities Extremities: No deformity - Neuro Neuro: Alert and oriented X 3 Eye Opening: Spontaneous Motor: Obeys Commands Verbal: Oriented GCS Score: 15 Results - Vitals Vitals: Vital Signs - 24 hr 10/29/22 16:58 Temperature 36.5 C Heart Rate 91 Respiratory 15 Rate Blood Pressure 146/65 H O2 Saturation 96 Oxygen O2 Source Room air - Rads (name of study) CT head Relevant Findings:: Final report received (No acute cardiopulmonary process) Procedures - Laceration (location) left forehead laceration Length in cm: 4 Wound type: Linear, Into subcut fat Anesthesia: Lidocaine 1% Wound preparation: Chlorhexadine, Irrigated copiously NS Skin layer closure: Nylon, Interrupted, Size #-0 - enter number (4), Sutures - enter # (7) Other: Patient tolerated well, Tetanus booster given PD Medical Decision Making - ED course Complexity details: reviewed results, re-evaluated patient, d/w patient ED course: 87-year-old female presents emergency department for evaluation of closed head injury and forehead laceration. She was carrying groceries into the house when she struck her head on the sharp edge of a door jam. No anticoagulation. Did not lose consciousness. She does have a 4 cm vertical laceration of the left upper forehead abutting the hairline. Given her age however and the length and depth of the laceration I felt it prudent to obtain a CT of the head to rule out any intracranial findings. CT was negative. Subsequently I closed the wound with 7 interrupted 4-0 sutures. Tetanus was updated today. She is discharged home in stable condition with usual emergent return precautions discussed for worsening symptoms. Departure - Departure Disposition: 01 Home, Self Care Clinical Impression: Closed head injury Qualifiers: Encounter type: initial encounter Qualified Code(s): S09.90XA - Unspecified injury of head, initial encounter Laceration of forehead without complication Qualifiers: Encounter type: initial encounter Qualified Code(s): S01.81XA - Laceration without foreign body of other part of head, initial encounter Condition: Stable Record reviewed to determine appropriate education?: Yes Comments: You were seen today in the emergency department after you struck your head on a door jam sustaining a 4 cm laceration to the forehead. We did close this wound with [address] of your head showed no findings of broken bones or bruising or bleeding within the brain. Your suture(s) should be removed in 7 to 10 days. In 24 hours you may remove the dressing wash gently with warm soap and water, apply any antibiotic ointment and a simple bandage. Your tetanus was updated today. Please attempt to keep your wound clean and dry. Do not submerge it in dirty dishwater or bath water. Return to the emergency department if you have any concerns of infection such as redness, fevers milky drainage increased pain. Return to the emergency department if you develop any sudden severe headache, have uncontrolled vomiting, any concerns of infection in the wound or slurred speech, facial droop or sudden weakness in the arms or legs. Forms: PCP List
--- NOTE | 2022-10-29 19:16 | CT Report ---
PROCEDURE: HEAD WO INDICATIONS: CHI TECHNIQUE: Noncontrast 4.5 mm thick angled axial sections acquired from the foramen magnum to the vertex. For r adiation dose reduction, the following was used: automated exposure control, adjustment of mA and/or kV according to patient size. COMPARISON: 03/17/2020 FINDINGS: Image quality: Excellent. CSF spaces: Basal cisterns are patent. No extra-axial fluid collections. Ventricles are normal in size and shape. Brain: No midline shift. No intracranial masses or hemorrhage. Weaver-white matter interface is norm al. Skull and face: Calvarium and visualized facial bones are intact, without suspicious lesions. Sinuses: Visualized sinuses and mastoids are clear. IMPRESSION: No acute intracranial pathology. No intracranial hemorrhage is seen. Reviewed by: Sundeep Chiu MD on 10/29/2022 6:15 PM CORINE Approved by: Sundeep Chiu MD on 10/29/2022 6:15 PM AKEDDIE Station ID: [id number]
[2022-10-29 19:33] VITALS: BP 130/108; O2SAT 98
== END 2022-10-29 19:28 | disposition home or self-care (01) ==
LOC: ED 16:42
DX: S01.112A Laceration without foreign body of left eyelid and periocular area, initial encounter (principal); W22.8XXA Striking against or struck by other objects, initial encounter; Z23 Encounter for immunization
CPT/HCPCS: 12013; 70450; 90471; 90715; 99284; A9270

== ENCOUNTER 2023-09-30 12:53 | Outpatient (CLI) | payer MEDICARE, OTHER ==
--- NOTE | 2023-09-30 21:30 | DEXA Report ---
PROCEDURE: Dexa Spine and/or Hip INDICATIONS: OSTEOPENIA TECHNIQUE: Dual energy x-ray absorptiometry (DXA) was performed on a [employer] System. Regions measur ed are the AP Spine, femoral neck, and if needed forearm. COMPARISON: DEXA on March 20, 2019 FINDINGS: Lumbar Spine (L1 L4): Bone Mineral Density: 1.276 g/cm/cm,T score: 0.8. There has been no statistically significant change in bone mineral density since the prior study. Left Femoral Neck: Bone Mineral Density: 0.808 g/cm/cm, T score: -1.7. Left Hip: Bone Mineral Density: 0.904 g/cm/cm,T score: -0.8. There has been no statistically significant change in bone mineral density since the prior study. FRAX risk factors: None given. 10 year risk of major osteoporotic fracture: 18.8% major osteoporotic fracture = hip, clinical vertebral, proximal humerus, distal forearm 10 year risk of hip fracture: 6.3% (T score greater or equal to -1.0: NORMAL) (T score from -1.1 to -2.4: OSTEOPENIA) (T score less than or equal to -2.5 to: OSTEOPOROSIS) Impression: 1.By WHO criteria, this patient has low bone density (osteopenia). 2.No statistical interval change in bone mineral density of the lumbar spine. No statistical interval change in bone mineral density of the hip. 3.The 10 year risk of a major osteoporotic fracture is 18.8% and of a hip fracture is 6.3%. Patients with diagnosis of osteoporosis or osteopenia should have regular bone mineral density assess ment. For those eligible for Medicare, routine testing is allowed once every 2 years. Testing frequ ency can be increased for patients who have rapidly progressing disease or for those who are receivin g medical therapy to restore bone mass. Reviewed by: Christel Chen MD on 09/30/2023 9:28 PM PDT Approved by: Christel Chen MD on 09/30/2023 9:28 PM PDT Station ID: [id number]
== END 2023-09-30 12:54 | disposition home or self-care (01) ==
LOC: DI 12:53
PROVIDERS: ATTEND Registered Nurse
DX: M85.88 Other specified disorders of bone density and structure, other site (principal)